=== PATIENT | female | born 1965 | race American Indian/Alaskan Native ===

== ENCOUNTER 2017-08-24 01:15 | Emergency (ER) | payer BC ==
[2017-08-24 01:29] VITALS: BP 135/60; PULSE 85; RESP 18; TEMP 97.1; O2SAT 100
[2017-08-24] MEDS ORDERED: Mineral Oil Enema 135 ml PR ONE (02:54)
--- NOTE | 2017-08-24 04:24 | ED PDOC ---
HPI: Abdomen Time Seen by Provider: 08/24/17 02:38 Chief Complaint (Nursing): GI Problem Chief Complaint (Provider): GI Problem History Per: Patient History/Exam Limitations: no limitations Onset/Duration Of Symptoms: Days (x 4) Current Symptoms Are (Timing): Still Present Additional Complaint(s): 51 year old female presents to the ED complaining of constipation, onset 4 days ago. Patient reports she has not had a full bowel movement in four days. She used an enema Monday that worked. When she tried to use one today, it did not work. Also complains of nausea and feels like she is going to vomit. PMD: Bela Julio Past Medical History Reviewed: Historical Data, Nursing Documentation, Vital Signs Vital Signs: Last Vital Signs Temp 97.1 F L 08/24/17 01:27 Pulse 85 08/24/17 01:27 Resp 18 08/24/17 01:27 BP 135/60 08/24/17 01:27 Pulse Ox 100 08/24/17 04:33 - Medical History PMH: HTN - Surgical History Surgical History: No Surg Hx - Family History Family History: States: Unknown Family Hx - Immunization History Hx Tetanus Toxoid Vaccination: No Hx Influenza Vaccination: No Hx Pneumococcal Vaccination: No - Home Medications Home Medications: Ambulatory Orders Medication Instructions Recorded Lisinopril/Hydrochlorothiazide 1 tab PO DAILY 12/13/15 [Lisinopril-Hydrochlorothiazide 25 mg-20 mg] Docusate Sodium [Colace] 100 mg PO BID #20 capsule 08/24/17 - Allergies Allergies/Adverse Reactions: Allergies Allergy/AdvReac Type Severity Reaction Status Date / Time No Known Allergies Allergy Verified 08/24/17 01:26 Review of Systems ROS Statement: Except As Marked, All Systems Reviewed And Found Negative Gastrointestinal: Positive for: Nausea, Abdominal Pain, Constipation Physical Exam - Reviewed Nursing Documentation Reviewed: Yes Vital Signs Reviewed: Yes - Physical Exam Appears: Positive for: Non-toxic, No Acute Distress Head Exam: Positive for: ATRAUMATIC, NORMOCEPHALIC Skin: Positive for: Normal Color, Warm, Dry Eye Exam: Positive for: EOMI, Normal appearance, PERRL Cardiovascular/Chest: Positive for: Regular Rate, Rhythm, Chest Non Tender Respiratory: Positive for: Normal Breath Sounds Gastrointestinal/Abdominal: Positive for: Normal Exam, Bowel Sounds, Soft, Tenderness (diffuse minimal tendernes to palpation). 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 Time: 04:32 --Patient had a large bowel movement and is feeling much better. F/u advised and return precautions discussed. Scribe Attestation: Documented by Deanna Cisneros, acting as a scribe for Colby Mcnamara MD. Provider Scribe Attestation: All medical record entries made by the Scribe were at my direction and personally dictated by me. I have reviewed the chart and agree that the record accurately reflects my personal performance of the history, physical exam, medical decision making, and the department course for this patient. I have also personally directed, reviewed, and agree with the discharge instructions and disposition. Disposition - Clinical Impression Clinical Impression: Constipation - Disposition Referrals: Bela Julio MD [Primary Care Provider] - Disposition Time: 04:00 Condition: IMPROVED Prescriptions: Docusate Sodium [Colace] 100 mg PO BID #20 capsule Instructions: Constipation (DC) Forms: [employer] (Telugu)
== END 2017-08-24 04:40 | disposition home or self-care (01) ==
LOC: H.ER 01:15
DX: K59.00 Constipation, unspecified (principal); I10 Essential (primary) hypertension